=== PATIENT | female | born 1955 | race Hispanic/Latino ===

== ENCOUNTER 2023-01-01 06:21 | Day surgery (SDC) | payer BC, MEDICARE ==
[2022-12-31 11:33] VITALS: BMI 37.7
[2023-01-01] MEDS ORDERED: EPINEPHrine 1 MG/ML AMP ONE (06:32)
[2023-01-01] MEDS ORDERED: Bupivacaine PF 0.5% 30 ML VIAL ONE (06:32)
[2023-01-01] MEDS ORDERED: Thrombin 5000 UNITS/5 ML VIAL ONE (06:32)
[2023-01-01] MEDS ORDERED: Sodium Chloride 0.9% 100 ML ONE ×2 (06:46→11:39)
[2023-01-01] MEDS ORDERED: CEFAZOLIN 2 GM VIAL ONE ×2 (06:46→11:38)
[2023-01-01] MEDS ORDERED: Midazolam HCl 2 mg/2 ml Vial ONE (07:02)
[2023-01-01] MEDS ORDERED: PROPOFOL 200 MG/20 ML VIAL ONE (07:25)
[2023-01-01] MEDS ORDERED: Rocuronium Bromide 10 MG/ML (10ML VIAL) ONE (07:25)
[2023-01-01] MEDS ORDERED: Succinylcholine 200 MG/10 ml SYRINGE FS ONE (07:25)
[2023-01-01] MEDS ORDERED: Lidocaine 1% PF 5 ML VIAL ONE (07:25)
[2023-01-01] MEDS ORDERED: Ondansetron PF 4 MG/2 ML Vial ONE (07:25)
[2023-01-01] MEDS ORDERED: Dexamethasone 20 MG/5 ML VIAL ONE (07:25)
[2023-01-01] MEDS ORDERED: fentaNYL 50 mcg/mL 1 mL Vial ONE ×3 (08:52→09:21)
[2023-01-01] MEDS ORDERED: HYDROmorphone 0.5 MG/0.5 ML SYRINGE ONE (09:02)
[2023-01-01] MEDS ORDERED: HYDROcodone/Acetaminophen 5/325 mg Tablet ONE (12:55)
== END 2023-01-01 13:20 | disposition home or self-care (01) ==
LOC: SDC 06:21
PROVIDERS: ATTEND Neurological Surgery
PROC: 01NB0ZZ Release Lumbar Nerve, Open Approach (ICD-10-PCS; principal; 2023-01-01)
DX: M54.16 Radiculopathy, lumbar region (principal); E78.5 Hyperlipidemia, unspecified; F32.A Depression, unspecified; D64.9 Anemia, unspecified; M19.90 Unspecified osteoarthritis, unspecified site; H26.9 Unspecified cataract; I10 Essential (primary) hypertension; Z87.59 Personal history of other complications of pregnancy, childbirth and the puerperium; Z98.1 Arthrodesis status; Z88.8 Allergy status to other drugs, medicaments and biological substances; Z87.891 Personal history of nicotine dependence; Z79.899 Other long term (current) drug therapy
CPT/HCPCS: 93005; 93010; J0171; J1100; J1170; J2250; J2405; J2704; J3010; J3490; S0020